=== PATIENT | male | born 1985 | race Caucasian/White ===

== ENCOUNTER 2018-08-24 21:45 | Emergency (ER) | payer MEDICAID, OTHER ==
[2018-08-24 22:18] VITALS: BP 129/74
[2018-08-24] MEDS ORDERED: HYDROCOD/APAP 5/325 PREPACK#6 BTL TAKEHOME ONE (22:33)
--- NOTE | 2018-08-24 22:33 | EDPHY ---
H & P Time Seen by Provider: 08/24/18 22:21 HPI/ROS: CHIEF COMPLAINT: Odontalgia x1 week HISTORY OF PRESENT ILLNESS: 32-year-old immunocompetent male has been told previously that tooth 15. Requires a root canal however he has not been able to ranges. Complaining of pain to same tooth. No fever no chills no nausea no vomiting no facial swelling. PHYSICAL EXAM (Prior to examination, patient consented to physical exam, hands were washed and my usual and customary physical exam procedures followed) 1) GENERAL: Well-developed, well-nourished, alert and oriented. Appears to be in no acute distress. 2) HEAD: Normocephalic 3) HEENT: sclera anicteric . No trismus no drooling. Tender to percussion tooth 15. No evidence of apical abscess. Floor of mouth soft no evidence of Howard's angina. No facial swelling. Nasolabial folds are symmetrical. No tonsillar enlargement or exudate. 4) LUNGS: Breathing comfortably. Smoking Status: Never smoked Constitutional: Initial Vital Signs Temperature (C) 36.5 C 08/24/18 22:17 Heart Rate 59 L 08/24/18 22:17 Respiratory Rate 16 08/24/18 22:17 Blood Pressure 129/74 H 08/24/18 22:17 O2 Sat (%) 100 08/24/18 22:17 O2 Delivery Mode Room Air Allergies/Adverse Reactions: No Known Allergies Allergy (Unverified 08/24/18 22:15) Home Medications: Medication Instructions Recorded Amoxicillin Trihydrate 500 mg PO Q8 7 Days cap 08/24/18 [Amoxicillin 500mg cap] MDM/Departure - MDM ED Course/Re-evaluation: No evidence of peritonsillar abscess, deep space infection, Howard's angina, apical abscess. No indication for imaging at this time. Today is Saturday. He has an appointment dental aid on Saturday. Recommend he keep this appointment. In the meantime he has been given take-home pack of [employer]move, prescription for amoxicillin. Patient feels comfortable being discharged. All questions and concerns addressed by myself. Patient given my usual and customary discharge precautions and instructions regarding their clinical impression. Care of patient under supervision of secondary supervising physician Dr Cantrell . - Depart Disposition: Home, Routine, Self-Care Clinical Impression: Odontalgia Condition: Good Instructions: Toothache (ED), Hydrocodone/Acetaminophen (By mouth) Additional Instructions: Return to the ER immediately if you cannot swallow, have drooling, fevers, neck stiffness, cannot open your jaw, or any other symptoms that concern you. Prescriptions: Amoxicillin Trihydrate [Amoxicillin 500mg cap] 500 mg PO Q8 7 Days cap Referrals: [facility] [Outside] - As per Instructions [facility] [Outside] - As per Instructions [facility] [Outside] - As per Instructions [facility] [Outside] - As per Instructions [facility] [Outside] - As per Instructions
== END 2018-08-24 22:45 | disposition home or self-care (01) ==
DX: K08.89 Other specified disorders of teeth and supporting structures (principal)